=== PATIENT | female | born 1935 | race Caucasian/White ===

== ENCOUNTER 2018-01-21 20:28 | Emergency (ER) | payer OTHER ==
[~2018-01-21] VITALS: Ht 160 cm; Wt 68.0 kg
[~2018-01-21 20:28] MED LIST: ALBIPROI INH; AMOCLA875 PO; ASPI81CH; ASPI81CH PO; ASPI81EC PO; ATEN25 PO; ATENOLOL; ATOR10; CALTRATE; CHOL10002 PO; DOXY100 PO; ETOD400 PO; GABA300 PO; GABAPENTIN; GLIM2 PO; GLIMEPIRIDE; HCTZ; HYDACE5 PO; HYDCHL12.5 PO; Hydrocodone-Ap1 EA23 PO; IBUP200; LOSARTAN PO; MECL12.5 PO; MECL25 PO; METPRE4DP PO; MULVITB PO; MULVITMIND; NITR100CA PO; OLME20 PO; OLME40 PO; OMEP10ER; ONDA8ODT MM; OXCA150 PO; OXYACE5T PO; PRED20; RXTRAM50 PO; Roxicodone5 MG PO; TRAM50 PO; Tamiflu75 MG PO; VALA500; VITAMIN B COMPLEX PO; [UNRECOGNIZED DRUG - CODE]; [UNRECOGNIZED DRUG - OTHER]
[2018-01-21] MEDS ORDERED: OXCA150 PO (20:36)
== END 2018-01-21 21:50 | disposition home or self-care (01) ==
LOC: ER 20:28
DX: G50.0 Trigeminal neuralgia (principal); E11.9 Type 2 diabetes mellitus without complications; Z88.1 Allergy status to other antibiotic agents; Z88.0 Allergy status to penicillin; Z88.8 Allergy status to other drugs, medicaments and biological substances; Z91.013 Allergy to seafood; Z79.899 Other long term (current) drug therapy; Z79.82 Long term (current) use of aspirin; Z79.84 Long term (current) use of oral hypoglycemic drugs; Z87.891 Personal history of nicotine dependence
CPT/HCPCS: 99283

== ENCOUNTER 2018-10-30 09:01 | Emergency (ER) | payer MEDICARE, OTHER ==
[~2018-10-30] VITALS: Ht 152.4 cm; Wt 63.5 kg
[2018-10-30] MEDS ORDERED: HYDCHL25 PO (09:13)
== END 2018-10-30 11:00 | disposition home or self-care (01) ==
LOC: ER 09:01
DX: S61.212A Laceration without foreign body of right middle finger without damage to nail, initial encounter (principal); W18.30XA Fall on same level, unspecified, initial encounter; Z88.8 Allergy status to other drugs, medicaments and biological substances; Z88.0 Allergy status to penicillin; Z91.013 Allergy to seafood; Z79.899 Other long term (current) drug therapy; Z79.82 Long term (current) use of aspirin; E11.9 Type 2 diabetes mellitus without complications; J44.9 Chronic obstructive pulmonary disease, unspecified; K21.9 Gastro-esophageal reflux disease without esophagitis; E78.5 Hyperlipidemia, unspecified; Z87.891 Personal history of nicotine dependence
CPT/HCPCS: 12001; 90471; 90714; 99283-25

== ENCOUNTER 2019-08-02 11:53 | Emergency (ER) | payer MEDICARE, OTHER ==
[~2019-08-02] VITALS: Ht 152.4 cm; Wt 63.5 kg
[~2019-08-02 11:53] MED LIST changes: +HYDCHL25 PO
== END 2019-08-02 13:40 | disposition home or self-care (01) ==
LOC: ER 11:53
DX: M75.01 Adhesive capsulitis of right shoulder (principal); Z88.0 Allergy status to penicillin; Z88.8 Allergy status to other drugs, medicaments and biological substances; Z91.013 Allergy to seafood; Z79.899 Other long term (current) drug therapy; Z79.82 Long term (current) use of aspirin; E11.9 Type 2 diabetes mellitus without complications; J44.9 Chronic obstructive pulmonary disease, unspecified; K21.9 Gastro-esophageal reflux disease without esophagitis; E78.5 Hyperlipidemia, unspecified; Z87.891 Personal history of nicotine dependence
CPT/HCPCS: 73030; 73060; 99283-25

== ENCOUNTER 2021-04-08 16:26 | Inpatient (IN) | payer MEDICARE, OTHER ==
[~2021-04-08] VITALS: Ht 154.9 cm; Wt 55.5 kg
[~2021-04-08 16:26] MED LIST changes: -CHOL10002 PO; +THERA-D2000 UNIT PO
[2021-04-08 16:53] LABS: Source, Urine Clean Catch
[2021-04-08 16:59] LABS: BASOPHILS ABSOLUTE AUTO 0.02 K/mm3 (0.00-0.23); BASOPHILS PERCENT AUTO 1 % (0-2); EOSINOPHILS PERCENT AUTO 0 % (0-6); Hematocrit 32.8 % (33.0-51.0); Hemoglobin 11.1 g/dL (11.5-16.0); IMMATURE GRAN ABSOLUTE AUTO 0.01 K/mm3 (0.00-0.10); IMMATURE GRAN PERCENT AUTO 0 % (0-1); LYMPHOCYTES ABSOLUTE AUTO 1.13 K/mm3 (0.84-5.20); LYMPHOCYTES PERCENT AUTO 26 % (21-46); MONOCYTES ABSOLUTE AUTO 0.34 K/mm3 (0.16-1.47); MONOCYTES PERCENT AUTO 8 % (4-13); Mean Corpuscular HGB Conc 33.8 g/dL (31.5-36.5); Mean Corpuscular Volume 98 fL (80-100); Mean Platelet Volume 9.7 fL (9.1-12.4); NEUTROPHILS ABSOLUTE AUTO 2.93 K/mm3 (1.96-9.15); NEUTROPHILS PERCENT AUTO 66 % (41-73); Platelet Count 124 K/mm3 (150-400); RDW Coefficient Variation 12.9 % (11.7-14.2); RDW Standard Deviation 45.9 fL (35.1-46.3); Red Blood Cell Count 3.36 M/mm3 (3.80-5.20); White Blood Cell Count 4.43 K/mm3 (4.00-11.30)
[2021-04-08 17:01] LABS: Appearance, Urine Hazy (Clear); Bilirubin, Urine Neg (Neg); Blood, Urine Neg (Neg); Color, Urine Yellow (P-Yellow); Glucose Qualitative, Urine Neg (Neg); Ketones, Urine Neg (Neg); Leukocyte Esterase, Urine 1+ (Neg); Nitrite, Urine Neg (Neg); Protein, Urine 2+ (Neg); Specific Gravity, Urine 1.025 (1.003-1.022); Urobilinogen, Urine NORM (Normal)
[2021-04-08 17:17] LABS: Albumin, Blood 2.7 g/dL (3.4-5.0); Albumin/Globulin Ratio 0.6 (0.8-1.8); Bilirubin, Total 0.4 mg/dL (0.1-1.0); Bun/Creatinine Ratio 26.2 (12.0-20.0); Calcium, Blood 8.1 mg/dL (8.5-10.1); Creatinine, Blood 1.03 mg/dL (0.40-1.00); Globulin, Blood 4.2 g/dL (2.2-4.0); Potassium, Blood 3.2 mmol/L (3.5-5.5); Total Protein, Blood 6.9 g/dL (6.4-8.2); Troponin I 0.019 ng/mL (0.000-0.040)
[2021-04-08 17:19] LABS: Amorphous Light (0-Heavy); Bacteria Mod /hpf; Mucus Light (0-Heavy); Squamous Epithelial Cells Few /hpf (Few)
[2021-04-08] MEDS ORDERED: Full Spectrum0.8 MG PO (19:02)
[2021-04-08] MEDS ORDERED: ASPI81CH PO (19:03)
[2021-04-08] MEDS ORDERED: Amaryl2 MG PO (19:05)
[2021-04-08] MEDS ORDERED: HYDCHL25 PO (19:06)
[2021-04-08] MEDS ORDERED: Norco 5-325 MG PO (19:07)
[2021-04-08] MEDS ORDERED: MECL25 PO (19:08)
[2021-04-08] MEDS ORDERED: TRILEPTAL300 M1 PO (19:09)
[2021-04-08] MEDS ORDERED: Vitamin D PO (19:11)
[2021-04-08] MEDS ORDERED: POTA8 PO (23:06)
--- NOTE | 2021-04-09 00:23 | NUR ---
POTASSIUM PATIENT REFUSED POTASSIUM IV STATING THAT IT WAS BURNING. DR. PATINO NOTIFIED. PO POTASSIUM 10MEQ ORDERED INSTEAD.
--- NOTE | 2021-04-09 04:50 | NUR ---
PATIENT IS A NEW ADMIT FROM ER WITH A DIAGNOSIS OF RESPIRATORY FAILURE AND COVID+. PATIENT IS A&OX4. PATIENT IS ABLE TO MAKE NEEDS KNOWN. PATIENT HAS A HISTORY OF HLD, NEUROPATHY, TRIGEMINAL NEURALGIA, DM, GERD AND COPD. PATIENT HAS A CURRENT UTI AND IS ON ANTIBIOTICS. PATIENT HAS INTERMITTENT PERIODS OF COUGHING WHICH NORMALLY RESOLVED AFTER REPOSITIONING. PATIENT WAS UNABLE TO TOLERATE POTASSIUM IV. DR JAIME WAS NOTIFIED. PO POTASSIUM 10MEQ WAS ORDERED. PATIENT TOLERATED WELL.
[2021-04-09 04:57] LABS: BASOPHILS ABSOLUTE AUTO 0.01 K/mm3 (0.00-0.23); BASOPHILS PERCENT AUTO 0 % (0-2); EOSINOPHILS PERCENT AUTO 0 % (0-6); Hematocrit 35.4 % (33.0-51.0); Hemoglobin 12.1 g/dL (11.5-16.0); Mean Corpuscular HGB 33.2 pg (26.0-34.0); Mean Corpuscular HGB Conc 34.2 g/dL (31.5-36.5); Mean Corpuscular Volume 97 fL (80-100); Mean Platelet Volume 9.6 fL (9.1-12.4); Platelet Count 132 K/mm3 (150-400); RDW Coefficient Variation 12.7 % (11.7-14.2); RDW Standard Deviation 45.4 fL (35.1-46.3); Red Blood Cell Count 3.64 M/mm3 (3.80-5.20); White Blood Cell Count 2.84 K/mm3 (4.00-11.30)
[2021-04-09 04:59] LABS: IMMATURE GRAN ABSOLUTE AUTO 0.01 K/mm3 (0.00-0.10); IMMATURE GRAN PERCENT AUTO 0 % (0-1); LYMPHOCYTES ABSOLUTE AUTO 0.77 K/mm3 (0.84-5.20); LYMPHOCYTES PERCENT AUTO 27 % (21-46); MONOCYTES PERCENT AUTO 7 % (4-13); NEUTROPHILS ABSOLUTE AUTO 1.85 K/mm3 (1.96-9.15); NEUTROPHILS PERCENT AUTO 65 % (41-73)
[2021-04-09 05:16] LABS: Albumin, Blood 2.8 g/dL (3.4-5.0); Albumin/Globulin Ratio 0.6 (0.8-1.8); Bilirubin, Total 0.5 mg/dL (0.1-1.0); Calcium, Blood 8.6 mg/dL (8.5-10.1); Creatinine, Blood 1.07 mg/dL (0.40-1.00); Globulin, Blood 4.6 g/dL (2.2-4.0); Potassium, Blood 3.4 mmol/L (3.5-5.5); Total Protein, Blood 7.4 g/dL (6.4-8.2)
--- NOTE | 2021-04-09 13:13 | NUR ---
PATIENT A&OX4 STATED THAT SHE DOES NOT TAKE MEDIATION FOR DM REFUSED ORAL MED AND INSULIN DESPITE EDUCATION REDIRECTION PATIENT CONTINUED TO REFUSE
--- NOTE | 2021-04-09 17:51 | NUR ---
PATIENT A&OX4 ABLE TO VERBALIZE NEEDS REMAINS WITH GENERALIZED WEAKNESS REQUIRES ASSIST X1 FOR ADL'S ADEQUATE PO INTAKE REMAINS ON O2 @ 4L NC MILD SOB WITH ACTIVITY SATS >92% PRODUCTIVE COUGH DIMIMISHED LS BILAT DENIES PAIN NO S/S DISTRESS NOTED SAFETY MEASURES MAINTAINED CALL LIGHT WITHIN REACH BED ALARM TO ALERT STAFF OF UNASSITED TRANSFERS WILL CONT TO MONITOR
--- NOTE | 2021-04-10 07:54 | NUR ---
PT IS A&OX4. VITAL SIGNS WNL. PT IS ON O2 @ 4L NASAL CANNULA. PT IS ON KVO NS. PT'S BED IS ON LOWEST POSITION, CALL LIGHT WITHIN PATIENT'S REACH.
[2021-04-10 18:58] LABS: Hematocrit 35.4 % (33.0-51.0); Hemoglobin 12.3 g/dL (11.5-16.0); Mean Corpuscular HGB 33.1 pg (26.0-34.0); Mean Corpuscular HGB Conc 34.7 g/dL (31.5-36.5); Mean Corpuscular Volume 95 fL (80-100); Mean Platelet Volume 10.4 fL (9.1-12.4); Platelet Count 146 K/mm3 (150-400); RDW Coefficient Variation 12.6 % (11.7-14.2); RDW Standard Deviation 44.6 fL (35.1-46.3); Red Blood Cell Count 3.72 M/mm3 (3.80-5.20); White Blood Cell Count 6.07 K/mm3 (4.00-11.30)
--- NOTE | 2021-04-10 19:12 | NUR ---
SUMMARY: NO ACUTE CHANGE TODAY, A/O. THIS RN AND NOC RN NOTED HR 39-42 WHILE PT SLEEPING SOUNDLY THIS MORNING, UPON ASSESSMENT PT ASYMPTOMATIC AND HR INCREASED TO 55-65 WHILE MOVING AND AWAKE. PT HR HAS NOT DROPPED THAT LOW AGAIN THIS ENTIRE SHIFT, DR. NESBITT MADE AWARE OF THIS, SEE NEW ORDER. OTHERWISE VSS. PT CONTINUES ON 6L 02 WITH SP02 RANGING 90-94%. PT HAS PRODUCTIVE COUGH AND HAS HAD SEVERAL COUGHING SPELLS TODAY, SEE NEW ORDER FOR TESSLON PEARLS. PT TURNS WELL IN BED HAS HAD SOME INCOT VOIDS. NO SAFETY CONCERNS AT THIS TIME, REPORT GIVEN TO TIESHA RN.
[2021-04-10 19:23] LABS: Albumin, Blood 2.8 g/dL (3.4-5.0); Albumin/Globulin Ratio 0.7 (0.8-1.8); Bilirubin, Total 0.4 mg/dL (0.1-1.0); Bun/Creatinine Ratio 31.5 (12.0-20.0); Calcium, Blood 8.7 mg/dL (8.5-10.1); Creatinine, Blood 1.11 mg/dL (0.40-1.00); Globulin, Blood 4.2 g/dL (2.2-4.0); Potassium, Blood 3.1 mmol/L (3.5-5.5)
[2021-04-10 19:45] LABS: BAND PERCENT MAN 19 % (0-8); BASOPHILS PERCENT MAN 0 % (0-2); EOSINOPHILS PERCENT MAN 0 % (0-6); LYMPHOCYTES % ATYPICAL MANUAL 3 % (0-0); LYMPHOCYTES ABSOLUTE MAN 1.21 K/mm3 (0.84-5.20); LYMPHOCYTES PERCENT MAN 17 % (21-46); MONOCYTES ABSOLUTE MAN 0.06 K/mm3 (0.16-1.47); MONOCYTES PERCENT MAN 1 % (4-13); NEUTROPHILS ABSOLUTE MAN 4.79 K/mm3 (1.96-9.15); SEG NEUTROPHILS PERCENT MAN 60 % (41-73); TOTAL CELLS COUNTED 100
[2021-04-11 04:42] LABS: Hematocrit 35.8 % (33.0-51.0); Hemoglobin 12.3 g/dL (11.5-16.0); Mean Corpuscular HGB 33.2 pg (26.0-34.0); Mean Corpuscular HGB Conc 34.4 g/dL (31.5-36.5); Mean Corpuscular Volume 97 fL (80-100); Mean Platelet Volume 10.3 fL (9.1-12.4); Platelet Count 141 K/mm3 (150-400); RDW Coefficient Variation 12.7 % (11.7-14.2); RDW Standard Deviation 45.4 fL (35.1-46.3); Red Blood Cell Count 3.71 M/mm3 (3.80-5.20)
[2021-04-11 05:04] LABS: Albumin, Blood 2.7 g/dL (3.4-5.0); Albumin/Globulin Ratio 0.6 (0.8-1.8); Bilirubin, Total 0.5 mg/dL (0.1-1.0); Bun/Creatinine Ratio 31.5 (12.0-20.0); Calcium, Blood 8.8 mg/dL (8.5-10.1); Creatinine, Blood 1.08 mg/dL (0.40-1.00); Globulin, Blood 4.2 g/dL (2.2-4.0); Potassium, Blood 2.9 mmol/L (3.5-5.5); Total Protein, Blood 6.9 g/dL (6.4-8.2)
[2021-04-11 05:54] LABS: BAND PERCENT MAN 5 % (0-8); BASOPHILS PERCENT MAN 0 % (0-2); EOSINOPHILS PERCENT MAN 0 % (0-6); LYMPHOCYTES ABSOLUTE MAN 2.38 K/mm3 (0.84-5.20); LYMPHOCYTES PERCENT MAN 31 % (21-46); MONOCYTES ABSOLUTE MAN 0.07 K/mm3 (0.16-1.47); MONOCYTES PERCENT MAN 1 % (4-13); NEUTROPHILS ABSOLUTE MAN 5.23 K/mm3 (1.96-9.15); SEG NEUTROPHILS PERCENT MAN 63 % (41-73); TOTAL CELLS COUNTED 100
--- NOTE | 2021-04-11 06:25 | NUR ---
PATIENT SUMMARY PATIENT IS ALERT AND ORIENTED X4. PLACED PATIENT ON A OXIMIZER AT 6L MY SHIFT AFTER PATIENT COMPLAINED OF SHORTNESS OF BREATH. TEMP ELEVATED TO 100 AND WILL ENDORSE MONITORING. ENCOURAGED PATIENT TO INCREASE ACTIVITY TOLERATED AND TO PRONE. ALL CARES AND MEDICATIONS COMPLETED AND GIVEN ORDERED ACCORDING TO NURSING JUDGEMENT. ALL UNFINNISHED CARES ENDORSED TO ONCOMING RN.
--- NOTE | 2021-04-11 16:11 | NUR ---
PATIENT A&OX4 VSS AFEBRILE THROUGHOUT SHIFT REMAINS ON O2 @ 6L VIA OXIMIZER REMAINS WITH SOB/CAMACHO DECLINES TO PRONE HAD PT/OT THIS AM TOLERATED ACTIVITY SATS 90-93% DENIES PAIN PATIENT RESTING QUIETLY IN BED REQUIRES MAX ASSIST WITH ADL'S WILL CALL LIGHT WITHIN REACH WILL CONT TO MONITOR
--- NOTE | 2021-04-12 03:52 | NUR ---
CALLED MD REGARDING LOW BLOOD SUGARS. BG DROPPED TO 48 AFTER ORAL REPLACEMENT REPLACED WITH IV DEXTROS PER PROTOCOL. MD MADE AWARE. WILL CONTINUE TO MONITOR.
--- NOTE | 2021-04-12 04:15 | NUR ---
CALLED FOR INCREASED ANXIETY. ORDERES GIVEN AND CARRIED OUT.
[2021-04-12 05:22] LABS: BASOPHILS ABSOLUTE AUTO 0.02 K/mm3 (0.00-0.23); BASOPHILS PERCENT AUTO 0 % (0-2); EOSINOPHILS PERCENT AUTO 0 % (0-6); Hematocrit 35.1 % (33.0-51.0); Hemoglobin 12.2 g/dL (11.5-16.0); IMMATURE GRAN ABSOLUTE AUTO 0.16 K/mm3 (0.00-0.10); IMMATURE GRAN PERCENT AUTO 1 % (0-1); LYMPHOCYTES ABSOLUTE AUTO 1.29 K/mm3 (0.84-5.20); LYMPHOCYTES PERCENT AUTO 11 % (21-46); MONOCYTES ABSOLUTE AUTO 0.52 K/mm3 (0.16-1.47); MONOCYTES PERCENT AUTO 5 % (4-13); Mean Corpuscular HGB 33.2 pg (26.0-34.0); Mean Corpuscular HGB Conc 34.8 g/dL (31.5-36.5); Mean Corpuscular Volume 96 fL (80-100); Mean Platelet Volume 10.7 fL (9.1-12.4); NEUTROPHILS ABSOLUTE AUTO 9.34 K/mm3 (1.96-9.15); NEUTROPHILS PERCENT AUTO 82 % (41-73); Platelet Count 143 K/mm3 (150-400); RDW Coefficient Variation 12.5 % (11.7-14.2); RDW Standard Deviation 44.2 fL (35.1-46.3); Red Blood Cell Count 3.67 M/mm3 (3.80-5.20); White Blood Cell Count 11.33 K/mm3 (4.00-11.30)
[2021-04-12 05:45] LABS: Alanine Aminotransfer (ALT/SGP 23 U/L (12-78); Albumin, Blood 2.6 g/dL (3.4-5.0); Albumin/Globulin Ratio 0.6 (0.8-1.8); Alk Phos 94 U/L (50-136); Anion Gap 9 mmol/L (6-16); Aspartate Aminotrans (AST/SGOT 40 U/L (12-37); Bilirubin, Total 0.6 mg/dL (0.1-1.0); Blood Urea Nitrogen 22 mg/dL (8-24); Bun/Creatinine Ratio 25.4 (12.0-20.0); CO2, Blood 26 mmol/L (21-32); Calcium, Blood 8.8 mg/dL (8.5-10.1); Chloride, Blood 97 mmol/L (98-108); Creatinine, Blood 0.87 mg/dL (0.40-1.00); Globulin, Blood 4.4 g/dL (2.2-4.0); Glomerular Filtration Rate >60 (60-); Glucose, Blood 116 mg/dL (70-99); Potassium, Blood 3.1 mmol/L (3.5-5.5); Sodium, Blood 132 mmol/L (136-145)
--- NOTE | 2021-04-12 06:07 | NUR ---
PATIENT SUMMARY PATIENT IS ALERT AND ORIENTED X4. VS REMAINED STABLE FOR PATIENT ON 4l OXIMIZER. PATIENT WAS NOT ALBE TO SLEEP ALOT TONIGHT. VERBALIZED NOT FEELING WELL AND WAS ANXIOUS. MD CALLED FOR DECREASED BG DOWN TO 48 MY SHIFT AND ANXIETY. ORDERES GIVEN AND CARRIED OUT. ENCOURAGED PATIENT TO INCREASE ACTIVITY TOLERATED AND TO TAKE COUGH AND DEEP BREATH QHOUR WHILE AWAKE. ALL CARES AND MEDICATIONS COMPLETED AND GIVEN ORDERED ACCORDING TO NURSING JUDGEMENT. REINFORCED EDUCATION REGARDING PLAN OF CARE. ALL UNFINISHED CARES ENDORSED TO ONCOMING RN. WILL CONTINUE TO MONITOR.
--- NOTE | 2021-04-12 17:54 | NUR ---
PATIENT A&OX4 NOTED WITH INCREASED WEAKNESS AND FATIGUE THROUGHOUT THE SHIFT REMAINS ON O2 @ 6L PER OXIMIZER WITH INTERMITTENT SOB/CAMACHO SATS 90-92% STRONG NON-PRODUCTIVE COUGH TESSALON PEARLS GIVEN WITH EFFECTIVENESS LS REMAINS DIMINISHED BILAT MOD-MAX ASSIST WITH ADL'S ENCOURAGEMENT AND ASSIST FOR MEALS DENIES SAFETY MEAUSURES MAINTAINED CALL LIGHT WITHIN REACH WILL CONT TO MONITOR
[2021-04-13 05:13] LABS: BASOPHILS ABSOLUTE AUTO 0.02 K/mm3 (0.00-0.23); BASOPHILS PERCENT AUTO 0 % (0-2); EOSINOPHILS PERCENT AUTO 0 % (0-6); Hematocrit 30.6 % (33.0-51.0); Hemoglobin 10.8 g/dL (11.5-16.0); Mean Corpuscular HGB 33.8 pg (26.0-34.0); Mean Corpuscular HGB Conc 35.3 g/dL (31.5-36.5); Mean Corpuscular Volume 96 fL (80-100); Mean Platelet Volume 10.4 fL (9.1-12.4); Platelet Count 145 K/mm3 (150-400); RDW Coefficient Variation 12.6 % (11.7-14.2); RDW Standard Deviation 44.6 fL (35.1-46.3); White Blood Cell Count 12.28 K/mm3 (4.00-11.30)
[2021-04-13 05:14] LABS: IMMATURE GRAN ABSOLUTE AUTO 0.08 K/mm3 (0.00-0.10); IMMATURE GRAN PERCENT AUTO 1 % (0-1); LYMPHOCYTES ABSOLUTE AUTO 1.65 K/mm3 (0.84-5.20); LYMPHOCYTES PERCENT AUTO 13 % (21-46); MONOCYTES ABSOLUTE AUTO 0.99 K/mm3 (0.16-1.47); MONOCYTES PERCENT AUTO 8 % (4-13); NEUTROPHILS ABSOLUTE AUTO 9.54 K/mm3 (1.96-9.15); NEUTROPHILS PERCENT AUTO 78 % (41-73)
[2021-04-13 06:10] LABS: Albumin, Blood 2.1 g/dL (3.4-5.0); Albumin/Globulin Ratio 0.5 (0.8-1.8); Bilirubin, Total 0.6 mg/dL (0.1-1.0); Bun/Creatinine Ratio 24.7 (12.0-20.0); Calcium, Blood 8.5 mg/dL (8.5-10.1); Creatinine, Blood 0.93 mg/dL (0.40-1.00); Globulin, Blood 3.9 g/dL (2.2-4.0); Potassium, Blood 4.4 mmol/L (3.5-5.5)
--- NOTE | 2021-04-13 07:10 | NUR ---
pATIENT IS ALERT AND ORIENTED X4. VS STABLE FOR PATIENT ON 6L OXIMIZER. PATIENT WAS ABLE TO SLEEP THROUGHOUT THE NIGHT. HAS MORE ENERGY THIS MORNING. SKIN PRECAUTIONS MAINTAINED. ENCOURAGED PATIENT TO INCREASE ACTIVITY TOLERATED. NO EVENTS OVER NIGHT. ALL MEDICATIONS GIVEN AND CARES COMPLETED ORDRED ACCORDING TO NURSING JUDGEMENT. ALL UNFINISHED CARES ENDORSED TO ONCOMING RN.
--- NOTE | 2021-04-13 19:47 | NUR ---
a+o but sleepy, call light in reach, saline locked, 7L via nc, oxamiter in vuong, low hr noted and dr dockery, able to sit at side of bed with assistance of therapy
--- NOTE | 2021-04-14 04:51 | NUR ---
PATIENT IS ALERT AND ORIENTED X4. ABLE TO MAKE NEEDS KNOWN. O2 AT 6L . PATIENT IS SINUS CAMELIA. PATIENT IS COMPLIANT WITH MEDS, ADLS PROVIDED. SAFETY MEASRES IN PLACE. WILL CONTINUE TO MONITOR PATIENT FOR SAFETY.
[2021-04-14 05:28] LABS: BASOPHILS ABSOLUTE AUTO 0.01 K/mm3 (0.00-0.23); BASOPHILS PERCENT AUTO 0 % (0-2); EOSINOPHILS PERCENT AUTO 0 % (0-6); Hematocrit 31.2 % (33.0-51.0); Hemoglobin 10.9 g/dL (11.5-16.0); Mean Corpuscular HGB 33.2 pg (26.0-34.0); Mean Corpuscular HGB Conc 34.9 g/dL (31.5-36.5); Mean Corpuscular Volume 95 fL (80-100); Mean Platelet Volume 10.8 fL (9.1-12.4); Platelet Count 168 K/mm3 (150-400); RDW Coefficient Variation 12.8 % (11.7-14.2); RDW Standard Deviation 44.4 fL (35.1-46.3); Red Blood Cell Count 3.28 M/mm3 (3.80-5.20); White Blood Cell Count 9.33 K/mm3 (4.00-11.30)
[2021-04-14 05:29] LABS: IMMATURE GRAN ABSOLUTE AUTO 0.06 K/mm3 (0.00-0.10); IMMATURE GRAN PERCENT AUTO 1 % (0-1); LYMPHOCYTES ABSOLUTE AUTO 1.26 K/mm3 (0.84-5.20); LYMPHOCYTES PERCENT AUTO 14 % (21-46); MONOCYTES ABSOLUTE AUTO 0.86 K/mm3 (0.16-1.47); MONOCYTES PERCENT AUTO 9 % (4-13); NEUTROPHILS ABSOLUTE AUTO 7.14 K/mm3 (1.96-9.15); NEUTROPHILS PERCENT AUTO 77 % (41-73)
[2021-04-14 06:20] LABS: Anion Gap 7 mmol/L (6-16); Blood Urea Nitrogen 25 mg/dL (8-24); Bun/Creatinine Ratio 30.2 (12.0-20.0); CO2, Blood 26 mmol/L (21-32); Calcium, Blood 8.7 mg/dL (8.5-10.1); Chloride, Blood 96 mmol/L (98-108); Creatinine, Blood 0.83 mg/dL (0.40-1.00); Glomerular Filtration Rate >60 (60-); Glucose, Blood 184 mg/dL (70-99); Potassium, Blood 4.9 mmol/L (3.5-5.5); Sodium, Blood 129 mmol/L (136-145)
--- NOTE | 2021-04-14 18:19 | NUR ---
alert and orintated, call light in reach, saline locked (does not like long running Iv's), on 3L via nc, drops down with activity, successfully medicated for leg pain after working with pt (stood at bedside), will continue to monitor and treat until share report with noc nurse
--- NOTE | 2021-04-15 04:03 | NUR ---
PATIENT IS A&OX4. ABLE TO MAKE NEEDS KNOWN. O2 RUNNING AT 6L/MIN VIA NASAL CANNULA. PATIENT DENIES PAIN OR DISCOMFORT. ADLS PROVIDED. SAFETY MEASURES IN PLACE. WILL CONTINUE TO MONITOR.
[2021-04-15 05:13] LABS: BASOPHILS ABSOLUTE AUTO 0.02 K/mm3 (0.00-0.23); BASOPHILS PERCENT AUTO 0 % (0-2); EOSINOPHILS PERCENT AUTO 0 % (0-6); Hematocrit 32.3 % (33.0-51.0); Hemoglobin 11.5 g/dL (11.5-16.0); Mean Corpuscular HGB 33.5 pg (26.0-34.0); Mean Corpuscular HGB Conc 35.6 g/dL (31.5-36.5); Mean Corpuscular Volume 94 fL (80-100); Mean Platelet Volume 10.4 fL (9.1-12.4); Platelet Count 211 K/mm3 (150-400); RDW Coefficient Variation 12.7 % (11.7-14.2); RDW Standard Deviation 43.8 fL (35.1-46.3); Red Blood Cell Count 3.43 M/mm3 (3.80-5.20); White Blood Cell Count 9.67 K/mm3 (4.00-11.30)
[2021-04-15 05:15] LABS: IMMATURE GRAN ABSOLUTE AUTO 0.11 K/mm3 (0.00-0.10); IMMATURE GRAN PERCENT AUTO 1 % (0-1); LYMPHOCYTES ABSOLUTE AUTO 1.79 K/mm3 (0.84-5.20); LYMPHOCYTES PERCENT AUTO 19 % (21-46); MONOCYTES ABSOLUTE AUTO 1.18 K/mm3 (0.16-1.47); MONOCYTES PERCENT AUTO 12 % (4-13); NEUTROPHILS ABSOLUTE AUTO 6.57 K/mm3 (1.96-9.15); NEUTROPHILS PERCENT AUTO 68 % (41-73)
[2021-04-15 05:46] LABS: Anion Gap 6 mmol/L (6-16); Blood Urea Nitrogen 24 mg/dL (8-24); Bun/Creatinine Ratio 33.4 (12.0-20.0); CO2, Blood 27 mmol/L (21-32); Calcium, Blood 8.7 mg/dL (8.5-10.1); Chloride, Blood 96 mmol/L (98-108); Creatinine, Blood 0.72 mg/dL (0.40-1.00); Glomerular Filtration Rate >60 (60-); Glucose, Blood 65 mg/dL (70-99); Potassium, Blood 4.1 mmol/L (3.5-5.5); Sodium, Blood 129 mmol/L (136-145)
--- NOTE | 2021-04-15 09:33 | NUR ---
CBG 46 pt a+o, gave her juice, gramcrackers and milk per her specifications, cbg up to 82, will continue to monitor and treat, medicated successfully for leg pain, dry cough continues
--- NOTE | 2021-04-15 18:29 | NUR ---
a+o but forgetful and easily distracted, denied pain in hip, call light in reach, 3L via nc has kept oxygen above 90% this shift, saline locked, cooperative with treatments and medications, will continue to monitor and treat until share report with noc nurse
--- NOTE | 2021-04-16 04:14 | NUR ---
RECEIVED PATIENT AWAKE, A&O. PATIENT C/O PAIN ON RIGHT HIP. DRY COUGH NOTED IN PATIENT. PRN MEDS FOR PAIN AND COUGH ADMINISTERED TO PATIENT. PATIENT TOLERATED WELL. ADLS PROVIDED, SAFETY MEASURES IN PLACE. WILL CONTINUE TO MONITOR.
[2021-04-16 05:19] LABS: BASOPHILS ABSOLUTE AUTO 0.04 K/mm3 (0.00-0.23); BASOPHILS PERCENT AUTO 0 % (0-2); EOSINOPHILS ABSOLUTE AUTO 0.01 K/mm3 (0.00-0.68); EOSINOPHILS PERCENT AUTO 0 % (0-6); Hematocrit 32.2 % (33.0-51.0); Hemoglobin 11.4 g/dL (11.5-16.0); Mean Corpuscular HGB 33.1 pg (26.0-34.0); Mean Corpuscular HGB Conc 35.4 g/dL (31.5-36.5); Mean Corpuscular Volume 94 fL (80-100); Mean Platelet Volume 10.2 fL (9.1-12.4); Platelet Count 211 K/mm3 (150-400); RDW Coefficient Variation 12.6 % (11.7-14.2); RDW Standard Deviation 43.3 fL (35.1-46.3); Red Blood Cell Count 3.44 M/mm3 (3.80-5.20); White Blood Cell Count 12.73 K/mm3 (4.00-11.30)
[2021-04-16 05:29] LABS: IMMATURE GRAN ABSOLUTE AUTO 0.15 K/mm3 (0.00-0.10); IMMATURE GRAN PERCENT AUTO 1 % (0-1); LYMPHOCYTES ABSOLUTE AUTO 2.17 K/mm3 (0.84-5.20); LYMPHOCYTES PERCENT AUTO 17 % (21-46); MONOCYTES PERCENT AUTO 12 % (4-13); NEUTROPHILS ABSOLUTE AUTO 8.86 K/mm3 (1.96-9.15); NEUTROPHILS PERCENT AUTO 70 % (41-73)
[2021-04-16 05:38] LABS: Anion Gap 7 mmol/L (6-16); Blood Urea Nitrogen 26 mg/dL (8-24); Bun/Creatinine Ratio 32.4 (12.0-20.0); CO2, Blood 26 mmol/L (21-32); Calcium, Blood 8.7 mg/dL (8.5-10.1); Chloride, Blood 95 mmol/L (98-108); Glomerular Filtration Rate >60 (60-); Glucose, Blood 55 mg/dL (70-99); Potassium, Blood 4.1 mmol/L (3.5-5.5); Sodium, Blood 128 mmol/L (136-145)
[2021-04-16 06:27] LABS: BAND PERCENT MAN 2 % (0-8); BASOPHILS PERCENT MAN 0 % (0-2); EOSINOPHILS PERCENT MAN 0 % (0-6); LYMPHOCYTES ABSOLUTE MAN 1.78 K/mm3 (0.84-5.20); LYMPHOCYTES PERCENT MAN 14 % (21-46); MONOCYTES ABSOLUTE MAN 1.27 K/mm3 (0.16-1.47); MONOCYTES PERCENT MAN 10 % (4-13); NEUTROPHILS ABSOLUTE MAN 9.67 K/mm3 (1.96-9.15); SEG NEUTROPHILS PERCENT MAN 74 % (41-73); TOTAL CELLS COUNTED 100
--- NOTE | 2021-04-16 08:26 | NUR ---
PHYSICIAN NOTIFIED CBG THIS AM WAS 63, PT ALSO IN A LOT OF PAIN AT THIS POINT. STATES 10/10 PAIN "ALL OVER". ENCOURAGED PT TO EAT/DRINK TO BRING HER CBG UP TO NORMAL LEVELS. PT IS REFUSING, TOOK 1 SIP AND STATED "SHE JUST CAN'T DO IT". PROVIDED PT c PAIN MEDICATION TO HOPEFULLY RELIEVE HER PAIN AND GET HER TO EAT. CALLED TO UPDATE ON PT STATUS, TALKED c JACK OF ALL TRADES (LUIS ANTONIO). AWAITING A CALL BACK/PROVIDER ORDERS. PT IS A&O @ THIS TIME, AND DENIES ANY OTHER DISTRESS BESIDES PAIN. VSS, ON 5 L/MIN O2 AND SATING ABOVE 90%.
[2021-04-16] MEDS ORDERED: Acetaminophen650 M1 PO (13:31)
[2021-04-16] MEDS ORDERED: BENZ100A PO (13:32)
[2021-04-16] MEDS ORDERED: BISA10S PR (13:33)
[2021-04-16] MEDS ORDERED: DEXA6 PO (13:34)
[2021-04-16] MEDS ORDERED: DOCU100 PO (13:36)
[2021-04-16] MEDS ORDERED: Q-Tussin100 MG/5 M PO (13:36)
[2021-04-16] MEDS ORDERED: Norco 5-325 Ta1 EACH PO (13:37)
[2021-04-16] MEDS ORDERED: IPRAT-ALBUT 0.5-3 ML INH (13:39)
[2021-04-16] MEDS ORDERED: DULCOLAX400 MG/5 M PO (13:40)
[2021-04-16] MEDS ORDERED: META800 PO (13:41)
[2021-04-16] MEDS ORDERED: MECL25 PO (13:41)
[2021-04-16] MEDS ORDERED: PANT40 PO (13:42)
--- NOTE | 2021-04-16 15:23 | NUR ---
DISCHARGE SUMMARY PT DISCHARGED @ APPROX 1520 VIA GURNEY BY [facility] TO [facility]. REPORT CALLED TO MARIE BY RN. FAMILY ALSO UPDATED BY PROVIDER OF TRANSFER, FAMILY ALSO CALLED BY RN ONCE PT WAS PICKED UP FOR FINAL UPDATE. 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 PACKET FAXED TO [facility].
== END 2021-04-16 15:17 | DRG 177 ==
LOC: ER 16:26 → MEDS 19:11 → ENPENDDIS 04-16 13:07 → MEDS 04-16 15:17
PROVIDERS: Family Medicine; Physician Assistant; ADMIT Hospitalist
PROC: 8E0ZXY6 Isolation (ICD-10-PCS; principal; 2021-04-08)
PROC: 3E0333Z Introduction of Anti-inflammatory into Peripheral Vein, Percutaneous Approach (ICD-10-PCS; 2021-04-08)
PROC: XW033E5 Introduction of Remdesivir Anti-infective into Peripheral Vein, Percutaneous Approach, New Technology Group 5 (ICD-10-PCS; 2021-04-08)
DX: U07.1 COVID-19 (principal); J12.82 Pneumonia due to coronavirus disease 2019; J96.01 Acute respiratory failure with hypoxia; J44.0 Chronic obstructive pulmonary disease with (acute) lower respiratory infection; D69.3 Immune thrombocytopenic purpura; E87.1 Hypo-osmolality and hyponatremia; R00.1 Bradycardia, unspecified; I50.9 Heart failure, unspecified; G50.0 Trigeminal neuralgia; E87.6 Hypokalemia; R42 Dizziness and giddiness; E11.22 Type 2 diabetes mellitus with diabetic chronic kidney disease; K21.9 Gastro-esophageal reflux disease without esophagitis; E78.5 Hyperlipidemia, unspecified; I71.4 Abdominal aortic aneurysm, without rupture; N18.30 Chronic kidney disease, stage 3 unspecified; M79.651 Pain in right thigh; E11.42 Type 2 diabetes mellitus with diabetic polyneuropathy; F17.210 Nicotine dependence, cigarettes, uncomplicated; Z96.642 Presence of left artificial hip joint; Z88.0 Allergy status to penicillin; Z88.8 Allergy status to other drugs, medicaments and biological substances; Z79.82 Long term (current) use of aspirin; Z79.84 Long term (current) use of oral hypoglycemic drugs; Z79.899 Other long term (current) drug therapy; Z90.49 Acquired absence of other specified parts of digestive tract; Z98.890 Other specified postprocedural states; Z91.013 Allergy to seafood
CPT/HCPCS: 36415; 71045; 80048; 80053; 81001; 82728; 82947; 83036; 83735; 83880; 84100; 84132; 84443; 84484; 85025; 85379; 86141; 87086; 93005; 93010; 93306; 94640; 94664; 94762; 96365; 96375; 97110; 97110-CQ; 97162; 97165; 97530; 97530-CQ; 99285-25; A9270; J1100; J1650; J1940; J3480; J7040; J7042

== ENCOUNTER → 2021-04-21 | Outpatient (CLI) | payer MEDICARE ==
[~2021-04-21] MED LIST changes: +Acetaminophen650 M1 PO; +Amaryl2 MG PO; +BENZ100A PO; +BISA10S PR; +DEXA6 PO; +DOCU100 PO; +DULCOLAX400 MG/5 M PO; +Full Spectrum0.8 MG PO; +IPRAT-ALBUT 0.5-3 ML INH; +META800 PO; +Norco 5-325 MG PO; +Norco 5-325 Ta1 EACH PO; +PANT40 PO; +POTA8 PO; +Q-Tussin100 MG/5 M PO; +TRILEPTAL300 M1 PO; +Vitamin D PO
[2021-04-21 11:16] LABS: Anion Gap 7 mmol/L (6-16); Blood Urea Nitrogen 17 mg/dL (8-24); Bun/Creatinine Ratio 23.4 (12.0-20.0); CO2, Blood 25 mmol/L (21-32); Calcium, Blood 9.1 mg/dL (8.5-10.1); Chloride, Blood 97 mmol/L (98-108); Creatinine, Blood 0.73 mg/dL (0.40-1.00); Glomerular Filtration Rate >60 (60-); Glucose, Blood 144 mg/dL (70-99); Phosphorus, Blood 2.4 mg/dL (2.5-4.9); Sodium, Blood 129 mmol/L (136-145)
== END | disposition home or self-care (01) ==
LOC: LAB RH 10:02 → EDSTATUS 10:43
PROVIDERS: Internal Medicine
DX: U07.1 COVID-19 (principal)
CPT/HCPCS: 80069

== ENCOUNTER → 2021-04-23 | Outpatient (CLI) | payer MEDICARE ==
[2021-04-23 17:30] LABS: Alanine Aminotransfer (ALT/SGP 15 U/L (12-78); Albumin, Blood 2.1 g/dL (3.4-5.0); Albumin/Globulin Ratio 0.4 (0.8-1.8); Alk Phos 133 U/L (50-136); Anion Gap 9 mmol/L (6-16); Aspartate Aminotrans (AST/SGOT 18 U/L (12-37); Bilirubin, Total 1.3 mg/dL (0.1-1.0); Blood Urea Nitrogen 22 mg/dL (8-24); Bun/Creatinine Ratio 31.7 (12.0-20.0); CO2, Blood 22 mmol/L (21-32); Calcium, Blood 9.2 mg/dL (8.5-10.1); Chloride, Blood 99 mmol/L (98-108); Creatinine, Blood 0.69 mg/dL (0.40-1.00); Globulin, Blood 4.9 g/dL (2.2-4.0); Glomerular Filtration Rate >60 (60-); Glucose, Blood 99 mg/dL (70-99); Potassium, Blood 4.1 mmol/L (3.5-5.5); Sodium, Blood 130 mmol/L (136-145)
== END | disposition home or self-care (01) ==
LOC: EDSTATUS 10:45 → LAB RH 15:28
PROVIDERS: Internal Medicine
DX: U07.1 COVID-19 (principal)
CPT/HCPCS: 80053

== ENCOUNTER → 2021-04-24 | Outpatient (CLI) | payer MEDICARE ==
[2021-04-24 15:10] LABS: BASOPHILS PERCENT AUTO 0 % (0-2); EOSINOPHILS PERCENT AUTO 0 % (0-6); Hematocrit 30.9 % (33.0-51.0); Hemoglobin 10.6 g/dL (11.5-16.0); IMMATURE GRAN PERCENT AUTO 1 % (0-1); LYMPHOCYTES ABSOLUTE AUTO 1.04 K/mm3 (0.84-5.20); LYMPHOCYTES PERCENT AUTO 4 % (21-46); MONOCYTES ABSOLUTE AUTO 1.57 K/mm3 (0.16-1.47); MONOCYTES PERCENT AUTO 7 % (4-13); Mean Corpuscular HGB 33.3 pg (26.0-34.0); Mean Corpuscular HGB Conc 34.3 g/dL (31.5-36.5); Mean Corpuscular Volume 97 fL (80-100); Mean Platelet Volume 9.9 fL (9.1-12.4); NEUTROPHILS PERCENT AUTO 88 % (41-73); Platelet Count 215 K/mm3 (150-400); RDW Standard Deviation 46.7 fL (35.1-46.3); Red Blood Cell Count 3.18 M/mm3 (3.80-5.20); White Blood Cell Count 23.61 K/mm3 (4.00-11.30)
[2021-04-24 15:54] LABS: Source, Urine Catheter
[2021-04-24 16:42] LABS: Appearance, Urine Cloudy (Clear); Blood, Urine 1+ (Neg); Color, Urine Amber (P-Yellow); Glucose Qualitative, Urine Neg (Neg); Ketones, Urine 3+ (Neg); Leukocyte Esterase, Urine 1+ (Neg); Nitrite, Urine Pos (Neg); Protein, Urine 2+ (Neg); Urobilinogen, Urine 3+ (Normal)
[2021-04-24 17:35] LABS: Bilirubin, Urine 2+ (Neg)
[2021-04-24 17:37] LABS: Bacteria Many /hpf; Red Blood Cells, Urine 0-2 /hpf (0-2); Squamous Epithelial Cells Rare /hpf (Few)
[2021-04-24 17:38] LABS: Transitional Epithelial Cells Few /hpf (0-Rare)
== END | disposition home or self-care (01) ==
LOC: EDSTATUS 10:46 → LAB RH 13:59
PROVIDERS: Internal Medicine
DX: U07.1 COVID-19 (principal); N39.0 Urinary tract infection, site not specified
CPT/HCPCS: 81001; 85025; 87077; 87086; 87186

== ENCOUNTER → 2021-04-30 | Outpatient (CLI) | payer MEDICARE ==
[2021-04-30 17:04] LABS: BASOPHILS ABSOLUTE AUTO 0.06 K/mm3 (0.00-0.23); BASOPHILS PERCENT AUTO 1 % (0-2); EOSINOPHILS ABSOLUTE AUTO 0.33 K/mm3 (0.00-0.68); EOSINOPHILS PERCENT AUTO 5 % (0-6); Hematocrit 26.7 % (33.0-51.0); Hemoglobin 9.1 g/dL (11.5-16.0); IMMATURE GRAN PERCENT AUTO 2 % (0-1); LYMPHOCYTES PERCENT AUTO 20 % (21-46); MONOCYTES ABSOLUTE AUTO 0.87 K/mm3 (0.16-1.47); MONOCYTES PERCENT AUTO 14 % (4-13); Mean Corpuscular HGB 33.5 pg (26.0-34.0); Mean Corpuscular HGB Conc 34.1 g/dL (31.5-36.5); Mean Corpuscular Volume 98 fL (80-100); NEUTROPHILS ABSOLUTE AUTO 3.59 K/mm3 (1.96-9.15); NEUTROPHILS PERCENT AUTO 58 % (41-73); Platelet Count 335 K/mm3 (150-400); RDW Coefficient Variation 13.2 % (11.7-14.2); Red Blood Cell Count 2.72 M/mm3 (3.80-5.20); White Blood Cell Count 6.15 K/mm3 (4.00-11.30)
[2021-04-30 17:36] LABS: Alanine Aminotransfer (ALT/SGP 14 U/L (12-78); Albumin, Blood 1.7 g/dL (3.4-5.0); Albumin/Globulin Ratio 0.4 (0.8-1.8); Alk Phos 77 U/L (50-136); Anion Gap 6 mmol/L (6-16); Aspartate Aminotrans (AST/SGOT 22 U/L (12-37); Bilirubin, Total 0.7 mg/dL (0.1-1.0); Blood Urea Nitrogen 23 mg/dL (8-24); Bun/Creatinine Ratio 31.5 (12.0-20.0); CO2, Blood 24 mmol/L (21-32); Calcium, Blood 9.2 mg/dL (8.5-10.1); Chloride, Blood 102 mmol/L (98-108); Creatinine, Blood 0.73 mg/dL (0.40-1.00); Globulin, Blood 4.8 g/dL (2.2-4.0); Glomerular Filtration Rate >60 (60-); Glucose, Blood 135 mg/dL (70-99); Potassium, Blood 3.8 mmol/L (3.5-5.5); Sodium, Blood 132 mmol/L (136-145); Total Protein, Blood 6.5 g/dL (6.4-8.2)
== END | disposition home or self-care (01) ==
LOC: EDSTATUS 10:47 → LAB RH 15:29
PROVIDERS: Internal Medicine
DX: U07.1 COVID-19 (principal)
CPT/HCPCS: 80053; 85025

== ENCOUNTER → 2021-05-06 | Outpatient (CLI) | payer MEDICARE ==
[2021-05-06 19:49] LABS: Source, Urine Catheter
[2021-05-06 19:55] LABS: Appearance, Urine Clear (Clear); Bilirubin, Urine Neg (Neg); Blood, Urine 3+ (Neg); Color, Urine Yellow (P-Yellow); Glucose Qualitative, Urine Neg (Neg); Ketones, Urine Neg (Neg); Leukocyte Esterase, Urine 3+ (Neg); Nitrite, Urine Neg (Neg); Protein, Urine 2+ (Neg); Urobilinogen, Urine 1+ (Normal)
[2021-05-06 20:02] LABS: Calcium Oxalate Crystals Few /hpf; White Blood Cells, Urine TNTC /hpf (0-5)
[2021-05-06 20:03] LABS: Bacteria Many /hpf; Squamous Epithelial Cells Few /hpf (Few); Transitional Epithelial Cells Few /hpf (0-Rare)
== END | disposition home or self-care (01) ==
LOC: EDSTATUS 10:48 → LAB RH 16:35
PROVIDERS: Internal Medicine
DX: N39.0 Urinary tract infection, site not specified (principal)
CPT/HCPCS: 81001; 87077; 87086; 87186

== ENCOUNTER → 2021-05-08 | Outpatient (CLI) | payer MEDICARE ==
[2021-05-08 12:33] LABS: Hematocrit 28.3 % (33.0-51.0); Hemoglobin 9.7 g/dL (11.5-16.0); Mean Corpuscular HGB Conc 34.3 g/dL (31.5-36.5); Mean Corpuscular Volume 96 fL (80-100); Mean Platelet Volume 9.5 fL (9.1-12.4); Platelet Count 464 K/mm3 (150-400); RDW Coefficient Variation 13.1 % (11.7-14.2); RDW Standard Deviation 46.3 fL (35.1-46.3); Red Blood Cell Count 2.94 M/mm3 (3.80-5.20); White Blood Cell Count 7.87 K/mm3 (4.00-11.30)
[2021-05-08 12:53] LABS: Alanine Aminotransfer (ALT/SGP 6 U/L (12-78); Albumin, Blood 1.5 g/dL (3.4-5.0); Albumin/Globulin Ratio 0.3 (0.8-1.8); Alk Phos 93 U/L (50-136); Anion Gap 8 mmol/L (6-16); Aspartate Aminotrans (AST/SGOT 12 U/L (12-37); Bilirubin, Total 0.5 mg/dL (0.1-1.0); Blood Urea Nitrogen 13 mg/dL (8-24); Bun/Creatinine Ratio 20.2 (12.0-20.0); CO2, Blood 24 mmol/L (21-32); Calcium, Blood 8.6 mg/dL (8.5-10.1); Chloride, Blood 96 mmol/L (98-108); Creatinine, Blood 0.65 mg/dL (0.40-1.00); Globulin, Blood 4.7 g/dL (2.2-4.0); Glomerular Filtration Rate >60 (60-); Glucose, Blood 107 mg/dL (70-99); Sodium, Blood 128 mmol/L (136-145); Total Protein, Blood 6.2 g/dL (6.4-8.2)
== END | disposition home or self-care (01) ==
LOC: LAB RH 10:45 → EDSTATUS 10:49
PROVIDERS: Internal Medicine
DX: U07.1 COVID-19 (principal)
CPT/HCPCS: 80053; 85027

== ENCOUNTER → 2021-05-11 | Outpatient (CLI) | payer MEDICARE ==
[2021-05-11 16:34] LABS: Alanine Aminotransfer (ALT/SGP 6 U/L (12-78); Albumin, Blood 1.4 g/dL (3.4-5.0); Albumin/Globulin Ratio 0.3 (0.8-1.8); Alk Phos 96 U/L (50-136); Anion Gap 7 mmol/L (6-16); Aspartate Aminotrans (AST/SGOT 16 U/L (12-37); Bilirubin, Total 0.5 mg/dL (0.1-1.0); Blood Urea Nitrogen 9 mg/dL (8-24); Bun/Creatinine Ratio 16.9 (12.0-20.0); CO2, Blood 21 mmol/L (21-32); Calcium, Blood 8.5 mg/dL (8.5-10.1); Chloride, Blood 98 mmol/L (98-108); Creatinine, Blood 0.53 mg/dL (0.40-1.00); Globulin, Blood 4.4 g/dL (2.2-4.0); Glomerular Filtration Rate >60 (60-); Glucose, Blood 89 mg/dL (70-99); Potassium, Blood 3.9 mmol/L (3.5-5.5); Sodium, Blood 126 mmol/L (136-145); Total Protein, Blood 5.8 g/dL (6.4-8.2)
== END | disposition home or self-care (01) ==
LOC: EDSTATUS 10:50 → LAB RH 14:43
PROVIDERS: Internal Medicine
DX: U07.1 COVID-19 (principal)
CPT/HCPCS: 80053